=== PATIENT | female | born 1990 | race Caucasian/White ===

== ENCOUNTER 2019-03-14 17:37 | Outpatient (CLI) | payer OTHER, MEDICAID ==
[~2019-03-14] VITALS: Ht 162.6 cm; Wt 96.8 kg
[2019-03-14 18:19] VITALS: BP 109/66
[2019-03-14] MEDS ORDERED: PREN1TAB60 PO (18:34)
[2019-03-16] MEDS ORDERED: IBUP-1222 PO (21:13)
== END 2019-03-14 19:53 | disposition home or self-care (01) ==
LOC: LDOP 17:37
PROVIDERS: ATTEND Obstetrics & Gynecology
DX: O42.92 Full-term premature rupture of membranes, unspecified as to length of time between rupture and onset of labor (principal); Z3A.38 38 weeks gestation of pregnancy
CPT/HCPCS: 59025; 89060; 99211; G0463; Q0114

== ENCOUNTER 2020-11-05 14:56 | Emergency (ER) | payer MEDICAID, OTHER ==
[~2020-11-05] VITALS: Ht 162.6 cm; Wt 85.0 kg
[~2020-11-05 14:56] MED LIST: IBUP-1222 PO; PREN1TAB60 PO
--- NOTE | 2020-11-05 15:25 | NUR ---
pt awake and alert sitting on gurney, oriented x4 complaining of neck pain rated 3/10, denies loc. denies need at this time. with call light in hand. no signs or symptoms of acute distress noted respirations even and unlabored.
--- NOTE | 2020-11-05 16:21 | NUR ---
pt in bed with no signs or symptoms of acute distress noted respirations even and unlabored, pt awake and oriented complaining of discomfort from c collar.
--- NOTE | 2020-11-05 16:53 | NUR ---
provider in room to assess
--- NOTE | 2020-11-05 18:11 | NUR ---
PRECEPTOR RN: CT CLEAR. C-COLLAR REMOVED.
--- NOTE | 2020-11-05 18:53 | NUR ---
ALL RESULTS ARE BACK AT THIS TIME. CHART UP FOR RECHECK.
[2020-11-05] MEDS ORDERED: ACETAMINOPHEN 500 MG TABLET ONE (19:16)
[2020-11-05 19:20] VITALS: BP 116/68
[2020-11-05] MEDS ORDERED: ACETAMINOPHEN 500 MG TABLET PO ONE (19:30)
== END 2020-11-05 19:23 | disposition home or self-care (01) ==
LOC: ED 16:51
DX: S16.1XXA Strain of muscle, fascia and tendon at neck level, initial encounter (principal); S20.219A Contusion of unspecified front wall of thorax, initial encounter; V58.0XXA Driver of pick-up truck or van injured in noncollision transport accident in nontraffic accident, initial encounter; Y93.89 Activity, other specified; Y92.488 Other paved roadways as the place of occurrence of the external cause; Y99.8 Other external cause status
CPT/HCPCS: 70450; 71045; 72125; 99285